=== PATIENT | female | born 1990 ===

== ENCOUNTER 2019-04-11 05:29 | Inpatient (IN) | payer OTHER ==
[2019-04-11] MEDS ORDERED: Lactated Ringers 1000 ML Bag* 1,000 ML IV ONE (06:17)
--- NOTE | 2019-04-11 06:32 | HP ---
General Information - Reason for Visit IUP at 38-/ in labor - General Information Maternal Age: 28 Grav: 4 Para: 3 SAB: 0 IEA: 0 Estimated Due Date: 04/23/19 Determined By: Early Ultrasound Gestational Age in Weeks/Days: 38-2/7 Maternal Blood Type and Rh: O Positive - Results this Serology/RPR Result: Non-Reactive Rubella Result: Immune HBsAg Result: Negative HIV Result: Negative GBS Culture Result: Negative Past Medical History Delivery History: Hx Uncomplicated Vaginal Delivery Delivery History Comment: 2007 female. Delivered in [facility] 2012 6lb 11oz female. Delivered at [place] 2016 6lbs 9oz male. Delivered at [place] Pertinent Past Medical History: See Records Past Medical History Comment: Anemia - has received [address] Quintana's office third trimester this Pertinent Past Surgical History: None Pertinent Family History: Non-Contributory - Antepartal Records Antepartal Records: Reviewed, Complicated by: - anemia Review of Systems Constitutional: Uncomfortable CV Complaint: No Respiratory: Shortness of Breath: No Gastrointestinal: No Nausea/Vomiting, Normal Bowel Movement Genitourinary: No Dysuria, No Leaking Fluid, Spotting Musculoskeletal: No Complaint, No Epigastric Pain Neurological: No Headache, No Visual Changes Movement: Normal Exam BP 105/56 HR 65 RR 17 T 97.9 SpO2 99% on RA - Measurements Height: 4 ft 10.5 in Weight: 139 lb Weight in lbs: [phone] Body Mass Index (BMI): 28.5 Pre- Weight: 125 lb Weight Gained This : 5 lbs and 0 ozs - Exam Breast: Breast Exam Deferred CVA: No CVA Tenderness Extremities: No Edema Heart: Normal Rhythm/Heart Sounds HEENT: No Significant Findings Lungs: Clear Bilaterally Rectal: Rectal Exam Deferred Reflexes: DTR 2+ Thyroid: No Thyromegaly - Abdominal Exam Abdomen Exam: Non-Tender - Ultrasound/Biophysical Profile Ultrasound Status: Not Done Targeted Exam Findings Estimated Weight: 6.5lbs by Rell Cervical Exam: 6cm Effacement: 100% Station: -1 Presenting Part: Vertex Membrane Status: Bulging Sterile Speculum Exam: Not done Bleeding/Discharge: Bloody Show EFM Findings - External Monitor Findings Baseline Heart Rate: 130 External Monitor Findings: Accelerations Present, No Pattern of Variable or Late Decelerations, Variability Moderate, Baseline Stable External Monitor Findings Comment: No evidence of metabolic acidemia Contractions: Regular Contraction Frequency: q 5-10 min with an irritability pattern Assessment/Plan - Assessment IUP at 38-2/7 in labor No evidence of metabolic acidemia Anemia GBS negative Non-Central African speaker (Mongolian). Physiotherapy Practice Manager iPad/SADAR [employer]rac[employer] at the bedside - Plan Plan: Admit - Anticipate Vaginal Delivery Plan Comment: Admit. Counseled for IV placement in labor. Pt initially declined but once she understood potential risk of bleeding related to her anemia agreed to IV placement. Hoping for unmedicated with minimal intervention. Report to Mitra Platt CNM who will be assuming care at 0800 - Date/Time of Admission Date of Admission: 04/11/19 Time of Admission: 06:12
[2019-04-11 06:42] LABS: ABS Lymphocytes 1.1 10^3/ul (1.0-4.8); ABS Monocytes 0.4 10^3/ul (0-0.8); ABS Neutrophils 5.7 10^3/ul (1.5-7.7); Eosinophil % 0.4 %; Hematocrit 32 % (35-47); Hemoglobin 10.4 g/dL (12.0-16.0); Lymphocyte % 15.3 %; Mean Corpuscular HGB Conc 33 g/dL (31-36); Mean Corpuscular Hemoglobin 28 pg (27-31); Mean Corpuscular Volume 86 fL (80-97); Mean Platelet Volume 8.8 fL (7.4-10.4); Platelet Count 183 10^3/uL (150-450); Red Cell Distribution Width 19 % (10-15); White Blood Count 7.3 10^3/uL (3.5-10.8)
--- NOTE | 2019-04-11 08:36 | PN ---
Progress Note - Progress Note Date of Service: 04/11/19 Note: S: Report from Chato Blackman CNM. Pt on hands and knees. Tearful with contractions. complicated by severe anemia. O: temp 98.9, RR 22. BP 101/70, HR 86 H/H 10.4/32, IV in place FHR: IA, last - 135, +accels, no decels, moderate variability Contractions: every 2-3 minutes, palpate strong VE: 7.5/100/-1, bulging bag A: IUP@38+2 in active labor H/H stable, high alert for PPH Making cervical change Regular contractions No evidence of metabolic acidemia P: Anticipate
[2019-04-11] MEDS ORDERED: Oxytocin in LR* 20 UNITS/1,000 ML BAG IVPB ONE (08:39)
[2019-04-11] MEDS ORDERED: Acetaminophen TAB* 325 MG PO PRN (10:06)
[2019-04-11] MEDS ORDERED: Glycerin ADULT SUPP PR PRN (10:06)
[2019-04-11] MEDS ORDERED: Witch Hazel PAD* JAR TOPICAL PRN (10:06)
[2019-04-11] MEDS ORDERED: OXYTOCIN* 10 UNITS/ML 1 ML VIAL IM ONE (10:06)
[2019-04-11] MEDS ORDERED: Dibucaine 1% 28.35 GM TUBE PR PRN (10:06)
[2019-04-11] MEDS ORDERED: Misoprostol TAB* 200 MCG PR ONE (10:06)
[2019-04-11] MEDS ORDERED: Ibuprofen TAB* 600 MG ONE (10:13)
[2019-04-11] MEDS: Ibuprofen TAB* 600 MG PO PRN ×3 (10:20→21:57)
[2019-04-11] MEDS ORDERED: Oxytocin in LR* 20 UNITS/1,000 ML BAG IVPB SCH (11:00)
[2019-04-11] MEDS ORDERED: Lactated Ringers 1000 ML Bag* 1,000 ML IV SCH (11:00)
--- NOTE | 2019-04-11 11:30 | PROCNOTE ---
[facility] OB: Delivery Note - Delivery A Date of : 04/11/19 Time of : 09:29 [place] Sex: Female Weight at : 6 lb 13 oz Score 1 Minute: 9 Score 5 Minutes: 9 Gestational Age in Weeks and Days at Delivery: 38 Weeks and 2 Days Delivery Method: Spontaneous Vaginal Labor: Spontaneous Did Patient attempt ?: N/A, No Previous Amniotic Fluid: Meconium Estimated Blood Loss: 500 Anesthesia/Analgesia: None Delivered By: Shirin Platt Nursery Level of Nursery: Regular/Bedside - Perineum Perineal Injury: Abrasion Only - Not Repaired - Events Delivery Events of Note: Pitocin Only After Delivery, Post- Bleeding - Meds Given - Additional Delivery Notes Additional Delivery Notes: G4 now P3 at 38+2 weeks was admitted on 04/11/19 in active labor. Pt progressed to complete with a bulging bag visible at the introitus. Pt requested AROM; AROM to thin meconium. Special care team alerted. Pushing began at 0924. of a single, liveborn, female OA to KERON followed after 4 minutes of pushing. was placed on mother's chest, HR >100, lusty cry, 's 9, 9. Cord was doubly clamped and cut by FOB once pulsations ceased. The placenta delivered spontaneously via savanna at 0944. Moderate bleeding noted. Unable to flush IV. Pitocin, 10mU, IM and Misoprostol, 800mcg, NH given. Fundus firm with massage. IV restarted, Pitocin IV running. EBL 500mL. Perineum and vagina carefully inspected. A small vaginal laceration was found and noted to be hemostatic; not repaired. Female infant breast feeding. Mother and baby stable at time of note.
[2019-04-11] MEDS ORDERED: Simethicone TAB* 80 MG TAB.CHEW PO SCH (12:30)
[2019-04-11] MEDS: Docusate CAP* 100 MG PO SCH ×2 (13:18→21:57)
[2019-04-11 13:27] LABS: Urine Benzodiazepine Screen None Detected (None Detect); Urine Opiates Screen None Detected (None Detect)
[2019-04-12 07:12] LABS: ABS Basophils 0.1 10^3/ul (0-0.2); ABS Eosinophils 0.1 10^3/ul (0-0.6); ABS Lymphocytes 1.8 10^3/ul (1.0-4.8); ABS Monocytes 0.4 10^3/ul (0-0.8); ABS Neutrophils 5.9 10^3/ul (1.5-7.7); Eosinophil % 1.2 %; Hematocrit 31 % (35-47); Hemoglobin 10.2 g/dL (12.0-16.0); Lymphocyte % 21.3 %; Mean Corpuscular HGB Conc 33 g/dL (31-36); Mean Corpuscular Hemoglobin 29 pg (27-31); Mean Corpuscular Volume 86 fL (80-97); Mean Platelet Volume 8.7 fL (7.4-10.4); Nucleated Red Blood Cells % 0.1; Platelet Count 192 10^3/uL (150-450); Red Blood Count 3.55 10^6 /uL (3.70-4.87); Red Cell Distribution Width 19 % (10-15); White Blood Count 8.3 10^3/uL (3.5-10.8)
[2019-04-12] MEDS ORDERED: Ferrous Gluconate TAB* 324 MG TAB PO SCH (09:00)
[2019-04-12] MEDS: Ibuprofen TAB* 600 MG PO PRN ×3 (09:14→21:58)
[2019-04-12] MEDS: Docusate CAP* 100 MG PO SCH ×3 (09:14→21:58)
[2019-04-13] MEDS: Ibuprofen TAB* 600 MG PO PRN (08:28)
[2019-04-13] MEDS: Docusate CAP* 100 MG PO SCH (08:29)
[2019-04-13 12:56] VITALS: BP 150/71
== END 2019-04-13 14:40 | disposition home or self-care (01) | DRG 560 ==
LOC: MCHOBOUT 05:29 → MCHOB 06:12
PROVIDERS: ADMIT Midwife; ATTEND Advanced Practice Midwife
PROC: 10E0XZZ Delivery of Products of Conception, External Approach (ICD-10-PCS; principal; 2019-04-11)
PROC: 10907ZC Drainage of Amniotic Fluid, Therapeutic from Products of Conception, Via Natural or Artificial Opening (ICD-10-PCS; 2019-04-11)
DX: O60.20X0 Term delivery with preterm labor, unspecified trimester, not applicable or unspecified (principal); O71.4 Obstetric high vaginal laceration alone; Z37.0 Single live birth; O72.1 Other immediate postpartum hemorrhage; O99.02 Anemia complicating childbirth; D64.89 Other specified anemias; O77.0 Labor and delivery complicated by meconium in amniotic fluid; Z3A.38 38 weeks gestation of pregnancy
CPT/HCPCS: 36415; 80307; 85025; 86850; 86900; 86901; A9270-GY; J2590